=== PATIENT | male | born 1955 | race Caucasian/White ===

== ENCOUNTER → 2024-04-27 06:59 | Outpatient (REF) | payer MEDICARE, OTHER, SELFPAY ==
[2024-04-27 09:15] LABS: ALT (SGPT) 53 U/L (0-50); AST (SGOT) 45 U/L (17-59); Albumin 4.6 g/dl (3.5-5.0); Alkaline Phosphatase 82 U/L (38-126); Blood Urea Nitrogen 16 mg/dl (9-20); Carbon Dioxide 27 mmol/L (22-30); Chloride 100 mmol/L (98-107); Glucose 91 mg/dl (70-99); HDL Cholesterol 38 mg/dl; LDL Cholesterol, Calculated 57 mg/dl; Potassium 4.7 mmol/L (3.5-5.1); Sodium 141 mmol/L (135-145); Total Bilirubin 0.9 mg/dl (0.2-1.3); Total Cholesterol 123 mg/dl (50-199); Total Protein 7.1 g/dl (6.3-8.2); Triglyceride 142 mg/dl (10-149); Very Low Density Lipoprotein 28 mg/dl (0-30); eGFR > 60.00
== END ==
LOC: RCS 06:59
PROVIDERS: ATTENDING PHYSICIAN Physician Assistant; FAMILY PHYSICIAN Internal Medicine
DX: I25.10 Atherosclerotic heart disease of native coronary artery without angina pectoris (principal); Z95.1 Presence of aortocoronary bypass graft; I10 Essential (primary) hypertension; R06.09 Other forms of dyspnea; R53.83 Other fatigue
CPT/HCPCS: 36415; 80053; 80061; 93306